=== PATIENT | female | born 1960 | race African-American/Black ===

== ENCOUNTER 2018-07-13 15:48 | Inpatient (IN) | payer OTHER ==
[2018-07-13 17:16] VITALS: BMI 28.1
--- NOTE | 2018-07-13 18:42 | HP ---
CIWA Score Nausea/Vomitin-No Nausea/No Vomiting Muscle Tremors: 1-None Visible, but Adams Anxiety: 0-No Anxiety, at Ease Agitation: 0-Normal Activity Paroxysmal Sweats: 3 Orientation: 0-Oriented Tacttile Disturbances: 1-Very Mild Itch/Numbness Auditory Disturbances: 1-Very Mild Visual Disturbances: 1-Very Mild Sensitivity Headache: 2-Mild CIWA-Ar Total Score: 9 - Admission Criteria OASAS Guidelines: Admission for Medically Managed Detox: Requires at least one of the followin. CIWA greater than 12 2. Seizures within the past 24 hours 3. Delirium tremens within the past 24 hours 4. Hallucinations within the past 24 hours 5. Acute intervention needed for co occurring medical disorder 6. Acute intervention needed for co occurring psychiatric disorder 7. Severe withdrawal that cannot be handled at a lower level of care (continued vomiting, continued diarrhea, abnormal vital signs) requiring intravenous medication and/or fluids 8. Admission ROS S - HPI Allergies/Adverse Reactions: Allergies Allergy/AdvReac Type Severity Reaction Status Date / Time No Known Allergies Allergy Verified 04/30/12 18:03 History of Present Illness: patient here requesting detox from ETOH use, states 1 pint /day since many years ago , sober x 2weeks 1 month ago , did not go to detox , this is the patient's second detox episode, prior many years ago . Reports that she starts drinking around 9 am , denies seizures, blackouts, tremors ,falls while intoxicated , does not drive. Latest use today , referred by program . Den 0.108 utox + thc, + janny , + mtd patient denies methadone use cocaine : every 4 days ( crack cocaine ) tobacco ; 08/20 ppd requesting nrt w/ patch PMhx : htn pshx : denies psych : denies meds : denies cannabis - every other day or weekly . Exam Limitations: No Limitations - Ebola screening Have you traveled outside of the country in the last 21 days: No Have you had contact with anyone from an Ebola affected area: No Have you been sick,other than usual withdrawal symptoms: No - Review of Systems Constitutional: No Symptoms Reported EENT: reports: Other (myopia) Respiratory: reports: No Symptoms reported Cardiac: reports: No Symptoms Reported GI: reports: Diarrhea : reports: No Symptoms Reported Musculoskeletal: reports: Back Pain, Joint Pain (chronic LBP , left ankle pain) Integumentary: reports: No Symptoms Reported Neuro: reports: No Symptoms reported Psychiatric: reports: Orientated x3, Anxious Patient History - Patient Medical History Hx Asthma: No Hx Chronic Obstructive Pulmonary Disease (COPD): No Hx Cardiac Disorders: No Hx Hypertension: No Hx Seizures: No Hx Diabetes: No Hx Gastrointestinal Disorders: No Hx Genitourinary Disorders: No Hx Sexually Transmitted Disorders: No Hx Renal Disease (ESRD): No Hx Human Immunodeficiency Virus (HIV): No Hx Hepatitis C: No Hx Depression: No Hx Suicide Attempt: No Hx Schizophrenia: No - Patient Surgical History Past Surgical History: No Hx Neurologic Surgery: No Hx Cataract Extraction: No Hx Cardiac Surgery: No Hx Lung Surgery: No Hx Breast Surgery: No Hx Breast Biopsy: No Hx Abdominal Surgery: No Hx Appendectomy: No Hx Cholecystectomy: No Hx Genitourinary Surgery: No Hx Section: No Hx Orthopedic Surgery: No Anesthesia Reaction: No - PPD History Date: 03/01/12 Results: 0 MM - Reproductive History Last Menstrual Period: 08/31/11 - Smoking Cessation Smoking history: Current every day smoker Have you smoked in the past 12 months: Yes Aproximately how many cigarettes per day: 7 Hx Chewing Tobacco Use: No Initiated information on smoking cessation: No Family Disease History - Family Disease History Family Disease History: Other: Mother (htn) Admission Physical Exam [facility] - Vital Signs Vital Signs: Vital Signs - 24 hr 07/13/18 17:14 Temperature 97.4 F L Pulse Rate 83 Respiratory 18 Rate Blood Pressure 146/101 H - Physical General Appearance: Yes: Within Normal Limits, Alcohol on Breath, Intoxicated, Anxious HEENTM: Yes: Hearing grossly Normal, Normal ENT Inspection, Normocephalic, Normal Voice Respiratory: Yes: Chest Non-Tender, Lungs Clear, Normal Breath Sounds Neck: Yes: Within Normal Limits Breast: Yes: Breast Exam Deferred Cardiology: Yes: Regular Rhythm, Regular Rate, S1, S2 Abdominal: Yes: Within Normal Limits Genitourinary: Yes: Within Normal Limits Musculoskeletal: Yes: full range of Motion, Gait Steady Extremities: Yes: Normal Capillary Refill, Normal Range of Motion Neurological: Yes: Motor Strength 5/5 Integumentary: Yes: Normal Color, Dry, Warm - Diagnostic (1) Alcohol intoxication Current Visit: Yes Status: Acute Qualifiers: Complication of substance-induced condition: uncomplicated Qualified Code(s ): F10.920 - Alcohol use, unspecified with intoxication, uncomplicated (2) Nicotine dependence Current Visit: Yes Status: Acute Qualifiers: Nicotine product type: cigarettes (3) Alcohol dependence Current Visit: No Status: Active (4) Cocaine dependence Current Visit: No Status: Acute [facility] Breath Alcohol Content Breath Alcohol Content: 0.108 Urine Pregancy Test - Result Urine Test Results: Negative- NO Line Present Urine Drug Screen - Results Drug Screen Negative: No Urine Drug Screen Results: THC-Marijuana, JANNY-Cocaine, MTD-Methadone
[2018-07-13] MEDS ORDERED: guaiFENesin/D-METHORPHAN HB 10 ML UNIT-DOSE CUPS PO PRN (18:46)
[2018-07-13] MEDS ORDERED: P-EPHED 60MG/TRIPROLIDI 2.5MG TABLET PO PRN (18:46)
[2018-07-13] MEDS ORDERED: IBUPROFEN 400 MG TABLET (FP) PO PRN (18:46)
[2018-07-13] MEDS ORDERED: chlordiazePOXIDE HCL 25 MG CAPSULE PO PRN (18:46)
[2018-07-13] MEDS ORDERED: MAGNESIUM CITRATE 300 ML BOTTLE PO PRN (18:46)
[2018-07-13] MEDS ORDERED: MENTHOL/PHENOL 1 EACH UD MM PRN (18:46)
[2018-07-13] MEDS ORDERED: MAGNESIUM HYDROX 2400MG/30ML ORAL SUSPENSION 30 ML CUP PO PRN (18:46)
[2018-07-13] MEDS ORDERED: MAG HYDROX/AL HYDROX/SIMETH 30 ML UNIT-DOSE CUP PO PRN (18:46)
[2018-07-13] MEDS: THIAMINE HCL 100 MG TABLET (FP) PO SCH (22:44)
[2018-07-13] MEDS: chlordiazePOXIDE HCL 25 MG CAPSULE PO SCH (22:44)
[2018-07-13] MEDS: MELATONIN 5 MG TABLETS PO PRN (22:45)
[2018-07-13 23:20] LABS: URINE APPEARANCE TURBID; URINE BILIRUBIN NEGATIVE (<2.0 mg/dL); URINE COLOR RED; URINE GLUCOSE (UA) NEGATIVE (NEGATIVE); URINE KETONE NEGATIVE (NEGATIVE); URINE LEUK ESTERASE 1+ (NEGATIVE); URINE NITRITE NEGATIVE (NEGATIVE); URINE PROTEIN 1+ (NEGATIVE)
[2018-07-13 23:43] LABS: EPI CELLS MODERATE /HPF (FEW); URINE BACTERIA RARE /hpf (NONE SEEN); URINE MUCUS MANY
[2018-07-14] MEDS: chlordiazePOXIDE HCL 25 MG CAPSULE PO SCH ×4 (05:42→22:22)
[2018-07-14] MEDS: PRENATAL VITAMINS W/ FOLIC ACID TABLET (FP) PO SCH (10:08)
[2018-07-14] MEDS: ACETAMINOPHEN 325 MG TABLET (FP) PO PRN (10:11)
[2018-07-14] MEDS: NICOTINE 7 MG/24 HOURS TOPICAL PATCH TD SCH (10:11)
[2018-07-14 10:54] LABS: HEMOGLOBIN 12.9 GM/dL (10.7-15.3); MCH 29.7 pg (25.7-33.7); MCHC 32.3 g/dl (32.0-36.0); MEAN CELL VOLUME 91.9 fl (80-96); MEAN PLT VOLUME 7.4 fl (7.5-11.1); PLATELET COUNT 263 K/MM3 (134-434); RBC 4.35 M/mm3 (3.60-5.2); WHITE BLOOD COUNT 3.9 K/mm3 (4.0-10.0)
[2018-07-14 11:19] LABS: ALBUMIN 3.4 g/dl (3.4-5.0); ALK PHOS 65 U/L (45-117); ANION GAP 9 MMOL/L (8-16); BILIRUBIN,TOTAL 0.9 mg/dL (0.2-1); BLOOD UREA NITROGEN 11 mg/dL (7-18); CHLORIDE 102 mmol/L (98-107); CO2 29 mmol/L (21-32); CREATININE 0.8 mg/dL (0.55-1.3); GLUCOSE,RANDOM 84 mg/dL (74-106); POTASSIUM 4.3 mmol/L (3.5-5.1); SGOT/AST 25 U/L (15-37); SGPT/ALT 29 U/L (13-61); SODIUM 140 mmol/L (136-145); TOT PROT 7.7 g/dl (6.4-8.2)
--- NOTE | 2018-07-14 11:29 | PN ---
[facility] CIWA - CIWA Score Nausea/Vomitin-No Nausea/No Vomiting Muscle Tremors: 3 Anxiety: 2 Agitation: 2 Paroxysmal Sweats: 2 Orientation: 0-Oriented Tacttile Disturbances: 0-None Auditory Disturbances: 0-None Visual Disturbances: 0-None Headache: 0-None Present CIWA-Ar Total Score: 9 [facility] Progress Note (SOAP) Subjective: sweats interrupted sleep anxiety Objective: 07/14/18 11:28 Vital Signs Temperature 99.3 F 07/14/18 09:18 Pulse Rate 80 07/14/18 09:18 Respiratory Rate 18 07/14/18 09:18 Blood Pressure 113/68 07/14/18 09:18 O2 Sat by Pulse Oximetry (%) Laboratory Tests 07/13/18 07/14/18 07/14/18 16:27 07:30 07:30 WBC 3.9 L RBC 4.35 Hgb 12.9 Hct 40.0 MCV 91.9 MCH 29.7 MCHC 32.3 RDW 14.0 D Plt Count 263 MPV 7.4 L D Sodium 140 Potassium 4.3 Chloride 102 Carbon Dioxide 29 Anion Gap 9 BUN 11 Creatinine 0.8 Creat Clearance w eGFR > 60 Random Glucose 84 Calcium 9.0 Total Bilirubin 0.9 AST 25 ALT 29 Alkaline Phosphatase 65 Total Protein 7.7 Albumin 3.4 Urine Color Red Urine Appearance Turbid Urine pH 5.0 Ur Specific [place] 1.018 Urine Protein 1+ H Urine Glucose (UA) Negative Urine Ketones Negative Urine Blood Negative Urine Nitrite Negative Urine Bilirubin Negative Urine Urobilinogen 2.0 H Ur Leukocyte Esterase 1+ H Urine WBC (Auto) 2 Urine RBC (Auto) 3 Ur Epithelial Cells Moderate Urine Bacteria Rare Urine Mucus Many repeat u/a aaox3 ambulating with cane no acute distress Assessment: 07/14/18 11:28 withdrawal sx Plan: continue detox increase fluids cane ordered
[2018-07-14] MEDS: THIAMINE HCL 100 MG TABLET (FP) PO SCH (22:22)
[2018-07-14] MEDS: MELATONIN 5 MG TABLETS PO PRN (22:22)
[2018-07-15] MEDS: chlordiazePOXIDE HCL 25 MG CAPSULE PO SCH ×3 (05:37→17:19)
[2018-07-15] MEDS: PRENATAL VITAMINS W/ FOLIC ACID TABLET (FP) PO SCH (10:06)
[2018-07-15] MEDS: NICOTINE 7 MG/24 HOURS TOPICAL PATCH TD SCH (10:07)
--- NOTE | 2018-07-15 10:13 | PN ---
[facility] CIWA - CIWA Score Nausea/Vomitin-No Nausea/No Vomiting Muscle Tremors: 3 Anxiety: 2 Agitation: 3 Paroxysmal Sweats: 2 Orientation: 0-Oriented Tacttile Disturbances: 0-None Auditory Disturbances: 0-None Visual Disturbances: 0-None Headache: 0-None Present CIWA-Ar Total Score: 10 [facility] Progress Note (SOAP) Subjective: B/L ankle/foot pain sweats interrupted sleep agitation Objective: 07/15/18 10:11 Vital Signs Temperature 98.2 F 07/15/18 10:00 Pulse Rate 80 07/15/18 10:00 Respiratory Rate 18 07/15/18 10:00 Blood Pressure 125/90 07/15/18 10:00 O2 Sat by Pulse Oximetry (%) Laboratory Tests 07/13/18 07/14/18 07/14/18 16:27 07:30 07:30 WBC 3.9 L RBC 4.35 Hgb 12.9 Hct 40.0 MCV 91.9 MCH 29.7 MCHC 32.3 RDW 14.0 D Plt Count 263 MPV 7.4 L D Sodium 140 Potassium 4.3 Chloride 102 Carbon Dioxide 29 Anion Gap 9 BUN 11 Creatinine 0.8 Creat Clearance w eGFR > 60 Random Glucose 84 Calcium 9.0 Total Bilirubin 0.9 AST 25 ALT 29 Alkaline Phosphatase 65 Total Protein 7.7 Albumin 3.4 Urine Color Red Urine Appearance Turbid Urine pH 5.0 Ur Specific [place] 1.018 Urine Protein 1+ H Urine Glucose (UA) Negative Urine Ketones Negative Urine Blood Negative Urine Nitrite Negative Urine Bilirubin Negative Urine Urobilinogen 2.0 H Ur Leukocyte Esterase 1+ H Urine WBC (Auto) 2 Urine RBC (Auto) 3 Ur Epithelial Cells Moderate Urine Bacteria Rare Urine Mucus Many RPR Titer 07/14/18 07:30 WBC RBC Hgb Hct MCV MCH MCHC RDW Plt Count MPV Sodium Potassium Chloride Carbon Dioxide Anion Gap BUN Creatinine Creat Clearance w eGFR Random Glucose Calcium Total Bilirubin AST ALT Alkaline Phosphatase Total Protein Albumin Urine Color Urine Appearance Urine pH Ur Specific [place] Urine Protein Urine Glucose (UA) Urine Ketones Urine Blood Urine Nitrite Urine Bilirubin Urine Urobilinogen Ur Leukocyte Esterase Urine WBC (Auto) Urine RBC (Auto) Ur Epithelial Cells Urine Bacteria Urine Mucus RPR Titer Nonreactive repeat u/a aaox3 ambulating with cane no acute distress Assessment: 11/29/18 10:11 withdrawal sx Plan: continue detox increase fluids B/L foot x-ray ordered motrin 600mg prn
--- NOTE | 2018-07-15 14:00 | PN ---
[facility] Progress Note Note: B/L foot x-ray results reviewed; no fractures noted, only arthritis was reported. Pt has motrin ordered and analgesic balm.
[2018-07-15] MEDS: IBUPROFEN 600 MG TABLET (FP) PO PRN (17:23)
[2018-07-15] MEDS: METHYL SALICYLATE/MENTHOL OINT 30 GM TUBE TP SCH (22:34)
[2018-07-15] MEDS: chlordiazePOXIDE 5 MG CAPSULE PO SCH (22:34)
[2018-07-15] MEDS: THIAMINE HCL 100 MG TABLET (FP) PO SCH (22:34)
[2018-07-15] MEDS: ACETAMINOPHEN 325 MG TABLET (FP) PO PRN (22:35)
[2018-07-16] MEDS: chlordiazePOXIDE 5 MG CAPSULE PO SCH ×3 (05:57→17:27)
[2018-07-16] MEDS: IBUPROFEN 600 MG TABLET (FP) PO PRN ×2 (05:58→22:17)
[2018-07-16] MEDS: PRENATAL VITAMINS W/ FOLIC ACID TABLET (FP) PO SCH (10:05)
[2018-07-16] MEDS: NICOTINE 7 MG/24 HOURS TOPICAL PATCH TD SCH (10:07)
[2018-07-16] MEDS: METHYL SALICYLATE/MENTHOL OINT 30 GM TUBE TP SCH ×2 (10:07→22:17)
--- NOTE | 2018-07-16 11:06 | PN ---
[facility] Progress Note (SOAP) Subjective: sweats interrupted sleep ankle discomfort Objective: 07/16/18 11:04 Vital Signs Temperature 98.0 F 07/16/18 10:09 Pulse Rate 64 07/16/18 10:09 Respiratory Rate 18 07/16/18 10:09 Blood Pressure 100/54 L 07/16/18 10:09 O2 Sat by Pulse Oximetry (%) aaox3 ambulating no acute distress Assessment: 07/16/18 11:04 mild withdrawal sx Plan: continue detox increase fluids explained to pt to ask for motrin and use the analgesic balm for her ankles copy of report in her d/c papers and to follow up with her PCP/orthopedic MD d/c in am
[2018-07-16] MEDS: ACETAMINOPHEN 325 MG TABLET (FP) PO PRN (17:27)
[2018-07-16] MEDS: chlordiazePOXIDE HCL 10 MG CAPSULE PO SCH (22:17)
[2018-07-16] MEDS: THIAMINE HCL 100 MG TABLET (FP) PO SCH (22:17)
[2018-07-17] MEDS: chlordiazePOXIDE HCL 10 MG CAPSULE PO SCH ×2 (06:00→10:10)
[2018-07-17 06:24] VITALS: BP 132/93; PULSE 66; TEMP 97.7
[2018-07-17] MEDS: PRENATAL VITAMINS W/ FOLIC ACID TABLET (FP) PO SCH (10:10)
[2018-07-17] MEDS: METHYL SALICYLATE/MENTHOL OINT 30 GM TUBE TP SCH (10:10)
[2018-07-17] MEDS: NICOTINE 7 MG/24 HOURS TOPICAL PATCH TD SCH (10:10)
--- NOTE | 2018-07-17 11:04 | PN ---
S Progress Note (SOAP) Subjective: DENIES ANY COMPLAINT REQUESTING PAIN MED FOR "MY ARTHRITIS" Objective: 07/17/18 11:02 A & O X 3 NO IN ACUTE DISTRESS GAIT STEADY Vital Signs Temperature 97.7 F 07/17/18 06:00 Pulse Rate 66 07/17/18 06:00 Respiratory Rate 18 07/17/18 06:00 Blood Pressure 132/93 07/17/18 06:00 O2 Sat by Pulse Oximetry (%) Assessment: 07/17/18 11:03 COMPLETED DETOX Plan: FOR D/C HOME
--- NOTE | 2018-07-17 11:09 | DS ---
[facility] Discharge Summary Admission Date: 07/13/18 Discharge Date: 07/17/18 - History Additional Comments: PT BEING DISCHARGED HOME AMBULATES STEADILY WITH CANE NO DISTRESS NOTED [place] [facility] [place] [facility] [place] [facility] AT PT'S REQUEST Pertinent Past History: OA - Physical Exam Results Vital Signs: Vital Signs Temperature 97.7 F 07/17/18 06:00 Pulse Rate 66 07/17/18 06:00 Respiratory Rate 18 07/17/18 06:00 Blood Pressure 132/93 07/17/18 06:00 O2 Sat by Pulse Oximetry (%) - Treatment Hospital Course: Detox Protocol Followed, Detoxed Safely, Responded well, Discharged Condition Good - Medication Discharge Medications: Ambulatory Orders Naproxen 500 mg PO BID 7 Days #14 tablet. 07/17/18 - Diagnosis (1) Alcohol intoxication Current Visit: Yes Status: Acute Qualifiers: Complication of substance-induced condition: uncomplicated Qualified Code(s ): F10.920 - Alcohol use, unspecified with intoxication, uncomplicated (2) Nicotine dependence Current Visit: Yes Status: Acute Qualifiers: Nicotine product type: cigarettes (3) Alcohol dependence Current Visit: Yes Status: Chronic (4) Cocaine dependence Current Visit: Yes Status: Chronic (5) Osteoarthritis Current Visit: No Status: Active - AMA Did Patient Leave Against Medical Advice: No
== END 2018-07-17 10:05 | disposition home or self-care (01) | DRG 774 ==
LOC: YASAS 15:48 → Y6N 19:42
PROC: HZ2ZZZZ Detoxification Services for Substance Abuse Treatment (ICD-10-PCS; principal; 2018-07-13)
DX: F10.20 Alcohol dependence, uncomplicated (principal); F14.20 Cocaine dependence, uncomplicated; F17.210 Nicotine dependence, cigarettes, uncomplicated; M19.90 Unspecified osteoarthritis, unspecified site; M54.5 Low back pain; G89.29 Other chronic pain; R26.89 Other abnormalities of gait and mobility; Z99.89 Dependence on other enabling machines and devices
CPT/HCPCS: 36415; 73610-TC-LT-FY; 73610-TC-RT-FY; 73630-TC-LT; 73630-TC-RT-FY; 80053; 81003; 81015; 85027; 86593